=== PATIENT | female | born 1975 | race Caucasian/White ===

== ENCOUNTER 2020-10-28 15:08 | Emergency (ER) | payer SELFPAY ==
[~2020-10-28] VITALS: Ht 142.2 cm; Wt 67.0 kg
[2020-10-28] MEDS ORDERED: IBUP-2029 MT (16:11)
[2020-10-28] MEDS ORDERED: IBUPROFEN 600MG TABLET PO ONE (16:15)
[2020-10-28 17:07] VITALS: BP 137/80
== END 2020-10-28 17:08 | disposition home or self-care (01) ==
LOC: ER 15:08
DX: S40.022A Contusion of left upper arm, initial encounter (principal); W22.8XXA Striking against or struck by other objects, initial encounter; Y93.89 Activity, other specified; Y92.89 Other specified places as the place of occurrence of the external cause; Y99.8 Other external cause status
CPT/HCPCS: 99282